=== PATIENT | male | born 1990 | race Caucasian/White ===

== ENCOUNTER 2025-04-22 01:23 | Emergency (ER) | payer MEDICAID, SELFPAY ==
[2025-04-22 01:35] VITALS: BP 137/74; PULSE 86; RESP 17; TEMP 36.9; O2SAT 99; BMI 34.7
--- NOTE | 2025-04-22 01:53 | ED.SKABFB ---
HPI - Skin/Abscess/Foreign Bdy General Chief complaint: Skin/Abscess/Foreign Body Stated complaint: R Arm Pain, sent by PCP Time Seen by Provider: 04/22/25 01:36 Source: patient Mode of arrival: Ambulatory Limitations: no limitations History of Present Illness HPI narrative: 34-year-old male who is very anxious about various medical issues. Approximately 3 [place] and he feels that since then he has been dealing with this infection off and on in his right forearm area. His PCP started him on Keflex 4 times a day yesterday and advised him to follow up today in the ER to follow up on infection. Related Data Allergies Allergy/AdvReac Type Severity Reaction Status Date / Time No Known Drug Allergies Allergy Verified 04/22/25 01:35 Review of Systems Review of Systems ROS Unobtainable: All systems reviewed & are unremarkable except as noted in HPI and below Patient History Smoking Status: Never smoker Exam Narrative Exam Narrative: General: Patient appears to be in no acute distress, acting appropriately Head: normocephalic, atraumatic, HEENT: Pupils equal round reactive, eyes tracking well, neck supple, no JVD Heart: regular rate and rhythm, no murmurs, rubs, or gallops heard Lungs: clear to auscultation, no adventitious sounds Abdomen: soft , nontender, nondistended, positive bowel sounds Neurological: no focal neurological signs, moving all extremities well, alert and oriented x3, Psych: good judgment ,good insight, mood is normal. rigth forearm area: feels like some possible scar tissue, no sign of skin infection, no warmth, no redness, no oozing appreciated. Initial Vital Signs Initial Vital Signs: Vital Signs Temperature 98.4 F 04/22/25 01:35 Pulse Rate 86 04/22/25 01:35 Respiratory Rate 17 04/22/25 01:35 Blood Pressure 137/74 04/22/25 01:35 Pulse Oximetry 99 04/22/25 01:35 Oxygen Delivery Method Room Air 04/22/25 01:35 Course Vital Signs Vital signs: Vital Signs - 8 hr 04/22/25 01:35 Temperature 98.4 F Pulse Rate 86 Respiratory Rate 17 Blood Pressure 137/74 Pulse Oximetry 99 Oxygen Delivery Method Room Air MDM - Skin/Abscess/Foreign Bdy MDM Narrative Medical decision making narrative: 34-year-old male with a PCP out of state in [place] who was advised to follow up here in the ED after being started on Keflex for what was presumed a skin infection of the right forearm. Upon physical examination, the right forearm does not appear actively infected. There is seems to be no appearance of infection anywhere at this time. Patient was reassured but advised to still continue with Keflex to finish its entirety for the next week since he has already started it. Discharge Plan Departure Patient Disposition: Home Clinical Impression: Scar tissue Instructions: Scar Tissue (Alternative Therapy) Activity Restrictions/Additional Instructions: Skin does not look actively infected at this time. Advised to go ahead and still finish the Keflex since he has already started. Can follow up sooner if site is worsening. No sign of any other infection at this time. Patient reassured. Right forearm area more likely scar tissue from previous IV placement several months ago Stand Alone Forms: Patient Portal/API
== END 2025-04-22 02:11 | disposition home or self-care (01) ==
PROVIDERS: Emergency Provider Family Medicine
DX: L90.5 Scar conditions and fibrosis of skin (principal)
CPT/HCPCS: 99281